=== PATIENT | male | born 1990 | race Two or more races ===

== ENCOUNTER 2020-04-19 20:30 | Emergency (ER) | payer SELFPAY ==
[~2020-04-19] VITALS: Ht 182.9 cm; Wt 81.6 kg
[2020-04-19 20:41] VITALS: BP 145/94
== END 2020-04-19 20:46 | disposition left against medical advice (07) ==
LOC: ER 20:30
DX: S80.211A Abrasion, right knee, initial encounter (principal); S80.212A Abrasion, left knee, initial encounter; Z53.21 Procedure and treatment not carried out due to patient leaving prior to being seen by health care provider; V89.2XXA Person injured in unspecified motor-vehicle accident, traffic, initial encounter; Y93.89 Activity, other specified; Y92.89 Other specified places as the place of occurrence of the external cause; Y99.8 Other external cause status